=== PATIENT | female | born 1985 | race Caucasian/White ===

== ENCOUNTER 2017-01-21 17:39 | Emergency (ER) | payer MEDICAID ==
[2017-01-21] MEDS ORDERED: Ondansetron 4 MG/2 ML SDV IVPUSH ONE (18:23)
--- NOTE | 2017-01-21 18:26 | EDM.PDOC ---
ED HPI GENERAL MEDICAL PROBLEM - General Chief Complaint: Gastrointestinal Problem Stated Complaint: NAUSEA, VOMITING Time Seen by Provider: 01/21/17 18:26 Source of Information: Reports: Patient History Limitations: Reports: No Limitations - History of Present Illness INITIAL COMMENTS - FREE TEXT/NARRATIVE: pt arrived with a history of vomiting most of the week end. She did do some vomiting on but he was better on Sunday and then started having problems on the wekend. She does have epigastric pain. She has not had rel severe pain like a gb attack. Onset: Gradual, Other ( sevral days. ) Location: Reports: Abdomen Associated Symptoms: Reports: Nausea/Vomiting, Other (t is 18 weeks . ) Epigastric Pain Score (Numeric/FACES): 9 - Related Data Allergies Allergy/AdvReac Type Severity Reaction Status Date / Time cefuroxime [From Ceftin] Allergy Seizure Verified 01/21/17 17:57 Past Medical History - Past Health History Medical/Surgical History: Denies Medical/Surgical History HEENT History: Reports: Impaired Vision Social & Family History - Tobacco Use Smoking Status *Q: Never Smoker - Caffeine Use Caffeine Use: Reports: Soda - Recreational Drug Use Recreational Drug Use: No ED ROS GENERAL - Review of Systems Review Of Systems: See Below Constitutional: Reports: Chills, Malaise, Decreased Appetite Respiratory: Reports: Cough, Other ( This just started this yefri. ) Cardiovascular: Reports: No Symptoms Endocrine: Reports: No Symptoms GI/Abdominal: Reports: Abdominal Pain, Other ( epigastric tenderness. ) : Reports: No Symptoms Musculoskeletal: Reports: No Symptoms Skin: Reports: No Symptoms ED EXAM, GI/ABD - Physical Exam Exam: See Below Text/Narrative:: pt arrived with upper abdomanal pain. She has been vomiting alot over the week end. She has developed diarrhea. She has a cough today which is new. Exam Limited By: No Limitations General Appearance: Alert, Mild Distress Eyes: Bilateral: Normal Appearance, EOMI Ears: Normal TMs Nose: Normal Inspection Throat/Mouth: Normal Inspection Head: Atraumatic Neck: Normal Inspection Respiratory/Chest: No Respiratory Distress Cardiovascular: Regular Rate, Rhythm GI/Abdominal Exam: Other ( tender in the epgastric area. ) (Female) Exam: Deferred Rectal (Female) Exam: Deferred Back Exam: Normal Inspection Extremities: Normal Inspection Neurological: Alert, Oriented, Normal Cognition Psychiatric: Normal Affect Course - Vital Signs Last Recorded V/S: Last Vital Signs Temp 37.2 C 01/21/17 20:36 Pulse 95 01/21/17 20:36 Resp 16 01/21/17 20:36 BP 122/67 01/21/17 20:36 Pulse Ox 90 L 01/21/17 20:36 - Orders/Labs/Meds Orders: Active Orders 24 hr Category Date Time Status Abdomen Ltd [US] Stat Exams 01/21/17 19:57 Taken CULTURE URINE [RM] Stat Lab 01/21/17 19:07 Received Sodium Chloride 0.9% [Normal Saline] 1,000 ml Med 01/21/17 18:30 Active IV ASDIRECTED Sodium Chloride 0.9% [Normal Saline] 1,000 ml Med 01/21/17 19:30 Active IV ASDIRECTED Medication Orders Sodium Chloride (Normal Saline) 1,000 mls @ 999 mls/hr IV ASDIRECTED GREG Last Admin: 01/21/17 18:43 Dose: 999 mls/hr Sodium Chloride (Normal Saline) 1,000 mls @ 999 mls/hr IV ASDIRECTED GREG Last Admin: 01/21/17 19:49 Dose: 999 mls/hr Labs: Laboratory Tests 01/21/17 01/21/17 01/21/17 Range/Units 18:35 18:35 18:53 WBC 13.8 H (4.5-11.0) K/uL RBC 3.91 (3.30-5.50) M/uL Hgb 11.9 L (12.0-15.0) g/dL Hct 35.5 L (36.0-48.0) % MCV 91 (80-98) fL MCH 30 (27-31) pg MCHC 34 (32-36) % Plt Count 213 (150-400) K/uL Neut % (Auto) 78 H (36-66) % Lymph % (Auto) 15 L (24-44) % Floyd % (Auto) 7 H (2-6) % Eos % (Auto) 1 L (2-4) % Baso % (Auto) 0 (0-1) % Sodium 139 L (140-148) mmol/L Potassium 3.4 L (3.6-5.2) mmol/L Chloride 103 (100-108) mmol/L Carbon Dioxide 28 (21-32) mmol/L Anion Gap 11.4 (5.0-14.0) mmol/L BUN 6 L (7-18) mg/dL Creatinine 0.7 (0.6-1.0) mg/dL Est Cr Clr Drug Dosing 102.40 mL/min Estimated GFR (MDRD) > 60 (>60) Glucose 99 (74-106) mg/dL Calcium 8.7 (8.5-10.1) mg/dL Total Bilirubin 0.4 (0.2-1.0) mg/dL AST 24 (15-37) U/L ALT 41 (12-78) U/L Alkaline Phosphatase 72 (46-116) U/L Total Protein 6.6 (6.4-8.2) g/dL Albumin 3.1 L (3.4-5.0) g/dL Globulin 3.5 (2.3-3.5) g/dL Albumin/Globulin Ratio 0.9 L (1.2-2.2) Lipase 121 (73-393) U/L Urine Color Yellow Urine Appearance Cloudy Urine pH 6.0 (4.5-8.0) Ur Specific [place] 1.020 (1.008-1.030) Urine Protein Negative (NEGATIVE) mg/dL Urine Glucose (UA) Normal (NEGATIVE) mg/dL Urine Ketones Negative (NEGATIVE) mg/dL Urine Occult Blood Negative (NEGATIVE) Urine Nitrite Negative (NEGATIVE) Urine Bilirubin Negative (NEGATIVE) Urine Urobilinogen Normal (NORMAL) mg/dL Ur Leukocyte Esterase Negative (NEGATIVE) Urine RBC 0-5 (0-5) Urine WBC 0-5 (0-5) Ur Epithelial Cells Many Amorphous Sediment Many Urine Bacteria Moderate Urine Mucus Few Urine Other Meds: Medications Generic Name Dose Route Start Last Admin Trade Name Freq PRN Reason Stop Dose Admin Sodium Chloride 1,000 mls @ 999 mls/hr 01/21/17 18:30 01/21/17 18:43 Normal Saline IV 999 mls/hr ASDIRECTED GREG Administration Sodium Chloride 1,000 mls @ 999 mls/hr 01/21/17 19:30 01/21/17 19:49 Normal Saline IV 999 mls/hr ASDIRECTED GREG Administration Discontinued Medications Generic Name Dose Route Start Last Admin Trade Name Freq PRN Reason Stop Dose Admin Ondansetron HCl 4 mg 01/21/17 18:23 01/21/17 18:43 Zofran IVPUSH 01/21/17 18:24 4 mg ONETIME ONE Administration Sucralfate 1 gm 01/21/17 19:02 01/21/17 19:19 Carafate PO 01/21/17 19:03 1 gm ONETIME ONE Administration - Re-Assessments/Exams Free Text/Narrative Re-Assessment/Exam: 01/21/17 19:31 pt hs epigastric tenderness. She does not hve sig fever. She last vomited at 5 am. She has been voiding ok. She has good heart tones at 169. Her lab work looks good. her wbc is 13,800. Her lipase is normal and hr liver enzymes are normal. Her urine is concentrted and has bacteria but very little wbcs. 01/21/17 22:04 pt had an us of her upper abdoman which did reveal stones present. She did have some thickening of her GB wall. She also had a nodule in the head of the pancreas wjhich will need further evaluation. Departure - Departure Time of Disposition: 22:05 Disposition: Home, Self-Care 01 Condition: Fair Clinical Impression: Viral illness, Cholecystitis with cholelithiasis, 18 weeks gestation of - Discharge Information Referrals: Greta Babcock CNM [Primary Care Provider] - Forms: ED Department Discharge Care Plan Goals: appt with Macy perez or sun. Gb diet, carafate 500mg tid . zpforan 4ng q6h prn for nayusea. - My Orders Last 24 Hours: My Active Orders 01/21/17 18:30 Sodium Chloride 0.9% [Normal Saline] 1,000 ml IV ASDIRECTED 01/21/17 19:07 CULTURE URINE [RM] Stat 01/21/17 19:30 Sodium Chloride 0.9% [Normal Saline] 1,000 ml IV ASDIRECTED 01/21/17 19:57 Abdomen Ltd [US] Stat - Assessment/Plan Last 24 Hours: My Active Orders 01/21/17 18:30 Sodium Chloride 0.9% [Normal Saline] 1,000 ml IV ASDIRECTED 01/21/17 19:07 CULTURE URINE [RM] Stat 01/21/17 19:30 Sodium Chloride 0.9% [Normal Saline] 1,000 ml IV ASDIRECTED 01/21/17 19:57 Abdomen Ltd [US] Stat
[2017-01-21] MEDS ORDERED: Sodium Chloride 0.9% 1,000 ML IV SCH ×2 (18:30→19:30)
[2017-01-21] MEDS ORDERED: Sucralfate 1 GM Tab PO ONE (19:02)
[2017-01-21 20:36] VITALS: BP 122/67
== END 2017-01-21 22:27 | disposition home or self-care (01) ==
LOC: JP.ED 17:39
DX: O99.612 Diseases of the digestive system complicating pregnancy, second trimester (principal); K80.10 Calculus of gallbladder with chronic cholecystitis without obstruction; O98.512 Other viral diseases complicating pregnancy, second trimester; B34.9 Viral infection, unspecified; Z88.1 Allergy status to other antibiotic agents; Z3A.18 18 weeks gestation of pregnancy
CPT/HCPCS: 36415; 76705; 80053; 81001; 83690; 85025; 87086; 96361; 96374; 99284; A9270; J2405; J7040

== ENCOUNTER 2017-05-20 10:50 | Emergency (ER) | payer MEDICAID ==
[2017-05-20 11:06] VITALS: BP 133/68
--- NOTE | 2017-05-20 11:31 | EDM.PDOC ---
ED HPI GENERAL MEDICAL PROBLEM - General Chief Complaint: Respiratory Problem Stated Complaint: BRONCHITIS?? Time Seen by Provider: 05/20/17 11:15 Source of Information: Reports: Patient, RN History Limitations: Reports: No Limitations - History of Present Illness INITIAL COMMENTS - FREE TEXT/NARRATIVE: 31 yo female presents with a cough and runny nose. No significant fever. Cough sometimes productive. Is not a smoker and is not asthmatic. Not SOB. Onset: Gradual Onset Date: 05/18/17 Duration: Day(s):, Getting Worse Location: Reports: Face (nose), Chest Quality: Reports: Other (no pain) Severity: Moderate Improves with: Reports: None Worsens with: Reports: None Context: Reports: Sick Contact Associated Symptoms: Reports: Cough, Other (rhinorrhea). 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 Denies: Shortness of Breath, Wheezing, Pleuritic Chest Pain, Hemoptysis Cardiovascular: Reports: No Symptoms Endocrine: Reports: No Symptoms GI/Abdominal: Reports: No Symptoms : Reports: No Symptoms, Other () Musculoskeletal: Reports: No Symptoms Skin: Reports: No Symptoms Neurological: Reports: No Symptoms ED EXAM, GENERAL - Physical Exam Exam: See Below Exam Limited By: No Limitations General Appearance: Alert, WD/WN, No Apparent Distress Eye Exam: Bilateral Eye: Normal Inspection Ears: Normal External Exam, Normal Canal, Hearing Grossly Normal, Normal TMs Ear Exam: Bilateral Ear: Auricle Normal, Canal Normal, TM normal Nose: No Blood, Nasal Drainage, Other (cloudy rhinorrhea, not dark). No: Nasal Tenderness, Nasal Flaring Throat/Mouth: Normal Inspection, Normal Lips, Normal Oropharynx, Normal Voice, No Airway Compromise Head: Atraumatic, Normocephalic Neck: Normal Inspection, Supple, Non-Tender Respiratory/Chest: No Respiratory Distress, Lungs Clear, Normal Breath Sounds, No Accessory Muscle Use Cardiovascular: Regular Rate, Rhythm, No Edema Extremities: Normal Inspection Neurological: Alert, Oriented, CN II-XII Intact, Normal Cognition, No Motor/ Sensory Deficits Psychiatric: Normal Affect, Normal Mood Skin Exam: Warm, Dry, Intact, Normal Color, No Rash Lymphatic: No Adenopathy Course - Vital Signs Last Recorded V/S: Last Vital Signs Temp 35.8 C 05/20/17 11:00 Pulse 96 05/20/17 11:00 Resp 16 05/20/17 11:00 BP 133/68 05/20/17 11:00 Pulse Ox 98 05/20/17 11:00 Departure - Departure Time of Disposition: 11:30 Disposition: Home, Self-Care 01 Condition: Good Clinical Impression: Viral URI with cough, 18 weeks gestation of - Discharge Information Referrals: Greta Babcock CNM [Primary Care Provider] - Forms: ED Department Discharge, ED Return to Work/School Form Additional Instructions: Cool mist humidifier. Drink ample fluids. Acetaminophen as needed for pain/ fever control. Limit use of cold meds. Recheck with your provider if needed.
== END 2017-05-20 11:36 | disposition home or self-care (01) ==
LOC: JP.ED 10:50
DX: O99.512 Diseases of the respiratory system complicating pregnancy, second trimester (principal); J06.9 Acute upper respiratory infection, unspecified; Z3A.18 18 weeks gestation of pregnancy; Z88.1 Allergy status to other antibiotic agents
CPT/HCPCS: 99283

== ENCOUNTER 2017-06-07 20:20 | Inpatient (IN) | payer MEDICAID ==
[2017-06-07] MEDS ORDERED: Penicillin G Potassium 5 MILLUNITS in Sodium Chloride 0.9% 50 ML IV ONE (22:00)
[2017-06-07] MEDS ORDERED: Ondansetron 4 MG Tab.DIS PO PRN (22:20)
[2017-06-07] MEDS ORDERED: fentaNYL 100 MCG/2 ML SDV IVPUSH PRN (22:20)
[2017-06-07] MEDS ORDERED: Acetaminophen 325 MG Tab PO PRN (22:20)
[2017-06-07] MEDS ORDERED: Sodium Chloride 0.9% 10 ML Syringe FLUSH PRN (22:20)
[2017-06-07] MEDS ORDERED: Zolpidem 5 MG Tab PO ONE (22:26)
--- NOTE | 2017-06-07 22:32 | PCM.LDHP ---
L&D History of Present Illness - General Date of Service: 06/07/17 Admit Problem/Dx: Patient Status Order with Admit Dx/Problem 06/07/17 22:21 Patient Status [ADT] Routine Admission Diagnosis/Problem Admission Diagnosis/Problem and not yet delivered Source of Information: Patient History Limitations: Reports: No Limitations - History of Present Illness Introduction:: This 31 year old who is 39 1/7 weeks gestation had spontaneous rupture of membranes tonight at home about 2030. Presented to hospital leaking clear fluid. Fern test positive. I saw her in clinic this afternoon. CE FT/60%/-2 Has a few contractions about 7-8 minutes apart, super mild. GBS positive Timing/Duration: Reports: minutes: (8) Location, : Reports: Abdomen Severity: Mild Improves with: Reports: None Worsens with: Reports: None Associated Symptoms: Reports: vaginal fluid - Related Data Allergies/Adverse Reactions: Allergies Allergy/AdvReac Type Severity Reaction Status Date / Time cefuroxime [From Ceftin] Allergy Seizure Verified 05/20/17 11:06 Home Medications: Home Meds Cetirizine [ZyrTEC] 10 mg PO DAILY PRN 06/07/17 [History] Omeprazole Magnesium [Prilosec] 20 mg PO DAILY 06/07/17 [History] PNV95/Ferrous Fumarate/FA [ Tablet] 1 tab PO DAILY 06/07/17 [History] Sucralfate [Carafate] 1 gm PO DAILY 06/07/17 [History] Past Medical History - Past Health History Medical/Surgical History: Denies Medical/Surgical History HEENT History: Reports: Impaired Vision Cardiovascular History: Reports: None Respiratory History: Reports: None Gastrointestinal History: Reports: GERD, Other (See Below) Other Gastrointestinal History: gall stones Genitourinary History: Reports: None 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 Para: 0 LMP (Approximate): (KATHY 06/13/17) Musculoskeletal History: Reports: None Neurological History: Reports: None Psychiatric History: Reports: None Endocrine/Metabolic History: Reports: None Hematologic History: Reports: None Oncologic (Cancer) History: Reports: None Dermatologic History: Reports: None - Infectious Disease History Infectious Disease History: Reports: None - Past Surgical History HEENT Surgical History: Reports: None Cardiovascular Surgical History: Reports: None Respiratory Surgical History: Reports: None GI Surgical History: Reports: None Female Surgical History: Reports: None Endocrine Surgical History: Reports: None Neurological Surgical History: Reports: None Musculoskeletal Surgical History: Reports: None Oncologic Surgical History: Reports: None Dermatological Surgical History: Reports: None Social & Family History - Tobacco Use Smoking Status *Q: Never Smoker - Caffeine Use Caffeine Use: Reports: Tea - Recreational Drug Use Recreational Drug Use: No H&P Review of Systems - Review of Systems: Review Of Systems: See Below General: Reports: No Symptoms HEENT: Reports: No Symptoms Pulmonary: Reports: No Symptoms Cardiovascular: Reports: No Symptoms Gastrointestinal: Reports: No Symptoms Genitourinary: Reports: No Symptoms Musculoskeletal: Reports: No Symptoms Skin: Reports: No Symptoms Psychiatric: Reports: No Symptoms Neurological: Reports: No Symptoms Hematologic/Lymphatic: Reports: No Symptoms Immunologic: Reports: No Symptoms L&D Exam - Exam Exam: See Below - Vital Signs Vital Signs: Last Vital Signs Temp 98.5 F 06/07/17 20:34 Pulse 105 H 06/07/17 20:34 Resp 20 06/07/17 20:34 BP 141/87 H 06/07/17 20:34 Pulse Ox - OB Specific Fundal Height In cm: 39 Contraction Duration (sec): 60-130 Contraction Frequency (min): x2 Contraction Intensity: Mild Movement: Active Heart Tones: Present Heart Tones per Min: 135 Heart Rate (FHR) Variability: Moderate (6-25 bmp) Presentation: Vertex Estimated Weight: 8 pounds - Dahl Score Dahl Score Cervix Position: Midposition Dahl Score Consistency: Soft Dalh Score Effacement: 51-70% Dahl Score Dilation: Closed Dahl Score 's Station: -2 Dahl Score Total: 6 - Exam General: Alert, Oriented HEENT: PERRLA, Conjunctiva Clear, EACs Clear, EOMI, Hearing Intact, Mucosa Moist & [place], Nares Patent, Normal Nasal Septum, Posterior Pharynx Clear, TMs Clear Neck: Supple, Trachea Midline Lungs: Clear to Auscultation, Normal Respiratory Effort Cardiovascular: Regular Rate, Regular Rhythm GI/Abdominal Exam: Normal Bowel Sounds, Soft, Non-Tender, No Organomegaly, No Distention, No Abnormal Bruit, No Mass, Pelvis Stable Rectal Exam: Normal Exam, Normal Rectal Tone Genitourinary: Normal external exam, Normal bimanual exam, Normal speculum exam , Enlarged uterus, Vaginal discharge Back Exam: Normal Inspection, Full Range of Motion Extremities: Normal Inspection, Normal Range of Motion, Non-Tender, No Pedal Edema, Normal Capillary Refill Skin: Warm, Dry, Intact Neurological: Cranial Nerves Intact, Reflexes Equal Bilateral Psychiatric: Alert, Normal Affect, Normal Mood - Patient Data Lab Results Last 24 hrs: Laboratory Results - last 24 hr 06/07/17 06/07/17 Range/Units 20:26 20:27 Urine Color Red Urine Appearance Cloudy Urine pH 6.0 (4.5-8.0) Ur Specific [place] 1.020 (1.008-1.030) Urine Protein 100 H (NEGATIVE) mg/dL Urine Glucose (UA) Normal (NEGATIVE) mg/dL Urine Ketones Negative (NEGATIVE) mg/dL Urine Occult Blood Large (NEGATIVE) Urine Nitrite Negative (NEGATIVE) Urine Bilirubin Negative (NEGATIVE) Urine Urobilinogen Normal (NORMAL) mg/dL Ur Leukocyte Esterase Large (NEGATIVE) Urine RBC Semi-packed H (0-5) Urine WBC Semi-packed H (0-5) Ur Epithelial Cells Many Amorphous Sediment Not seen Urine Bacteria Many Urine Mucus Few Membrane Rupture Negative (NEGATIVE) - Problem List (1) PROM (premature rupture of membranes) SNOMED Code(s): 98477037 ICD Code: O42.90 - LILY ROM, 7TH0 BETW RUPT & ONST LABR, UNSP WEEKS OF GEST Status: Acute Current Visit: Yes (2) SNOMED Code(s): 01750912 ICD Code: Z34.90 - ENCNTR FOR SUPRVSN OF NORMAL , UNSP, UNSP TRIMESTER Status: Acute Current Visit: Yes Qualifiers: Weeks of gestation: 39 weeks Qualified Code(s): Z3A.39 - 39 weeks gestation of Problem List Initiated/Reviewed/Updated: Yes Orders Last 24hrs: Active Orders 24 hr Category Date Time Status Patient Status [ADT] Routine ADT 06/07/17 22:21 Ordered Antiembolic Devices [RC] .Routine Care 06/07/17 22:24 Ordered Bedrest Bathroom Privileges [RC] ASDIRECTED Care 06/07/17 22:20 Ordered Communication Order [RC] ASDIRECTED Care 06/07/17 22:21 Ordered Heart Tones [RC] PER UNIT ROUTINE Care 06/07/17 22:21 Ordered May Shower [RC] ASDIRECTED Care 06/07/17 22:20 Ordered Notify Provider Vital Signs [RC] PRN Care 06/07/17 22:20 Ordered Notify Provider [RC] PRN Care 06/07/17 22:21 Ordered OB Check [OM.PC] Click to Edit Care 06/07/17 20:26 Ordered Ready for Discharge [RC] PER UNIT ROUTINE Care 06/07/17 21:29 Inactive Up ad Felisa [RC] ASDIRECTED Care 06/07/17 22:20 Ordered VTE/DVT Education [RC] Click to Edit Care 06/07/17 22:24 Ordered Vital Signs [RC] PER UNIT ROUTINE Care 06/07/17 22:21 Ordered Regular Diet [DIET] Diet 06/08/17 Breakfast Ordered CBC WITH AUTO DIFF [HEME] Routine Lab 06/07/17 22:16 Ordered DRUG SCREEN, URINE [URCHEM] Routine Lab 06/07/17 22:17 Ordered Acetaminophen [Tylenol] Med 06/07/17 22:20 Ordered 650 mg PO Q4H PRN Ondansetron [Zofran ODT] Med 06/07/17 22:20 Ordered 4 mg PO Q4H PRN Oxytocin/Normal Saline [Pitocin in NS 20 Units/1,000 ML Med 06/07/17 22:30 Ordered ] 1,000 ml IV TITRATE Penicillin G Potassium [Pfizerpen] 2.5 millunits Med 06/08/17 02:00 Active Sodium Chloride 0.9% [Normal Saline] 50 ml IV Q4H Penicillin G Potassium [Pfizerpen] 5 millunits Med 06/07/17 22:00 Active Sodium Chloride 0.9% [Normal Saline] 50 ml IV ONETIME Sodium Chloride 0.9% [Saline Flush] Med 06/07/17 22:20 Ordered 10 ml FLUSH ASDIRECTED PRN Zolpidem [Ambien] Med 06/07/17 22:26 Once 10 mg PO ONETIME ONE fentaNYL [Sublimaze] Med 06/07/17 22:20 Ordered 100 mcg IVPUSH Q1H PRN DVT/VTE Prophylaxis Reflex [OM.PC] Routine Oth 06/07/17 22:20 Ordered Saline Lock Insert [OM.PC] Routine Oth 06/07/17 22:21 Ordered Resuscitation Status Routine Resus Stat 06/07/17 22:20 Ordered Medication Orders Acetaminophen (Tylenol) 650 mg PO Q4H PRN PRN Reason: Pain (Mild 1-3) and fever Fentanyl (Sublimaze) 100 mcg IVPUSH Q1H PRN PRN Reason: Pain (moderate 4-6) Penicillin G Potassium 5 (millunits/ Sodium Chloride) 50 mls @ 100 mls/hr IV ONETIME ONE Stop: 06/07/17 22:29 Penicillin G Potassium 2.5 (millunits/ Sodium Chloride) 50 mls @ 100 mls/hr IV Q4H GREG Oxytocin/Sodium Chloride (Pitocin In Ns 20 Units/1,000 Ml) 1,000 mls @ 6 mls/ hr IV TITRATE GREG; 2 MUNITS/MIN PRN Reason: Protocol Ondansetron HCl (Zofran Odt) 4 mg PO Q4H PRN PRN Reason: Nausea/Vomiting Sodium Chloride (Saline Flush) 10 ml FLUSH ASDIRECTED PRN PRN Reason: Keep Vein Open Zolpidem Tartrate (Ambien) 10 mg PO ONETIME ONE Stop: 06/07/17 22:27 Assessment/Plan Comment:: 06/07/17 31 year old 39 1/7 weeks with PROM, positive fern test. GBS positive, protocol started. ABO A pos HIV neg Rubella immune Plan: Rest tonight ambien 10 mg po now. Up at 0500 shower breakfast and start pitocin drip NO vaginal checks unless absolutely necessary Epidural for pain management if she requests. anticipate vaginal delivery tomorrow
[2017-06-08] MEDS: Penicillin G Potassium 2.5 MILLUNITS in Sodium Chloride 0.9% 50 ML IV SCH ×6 (02:33→22:29)
--- NOTE | 2017-06-08 07:20 | PCM.PNLD ---
Labor Progress Note - VS & Meds Vital Signs: Last Vital Signs Temp 97.2 F 06/08/17 06:00 Pulse 93 06/08/17 06:32 Resp 16 06/08/17 06:32 BP 122/76 06/08/17 06:32 Pulse Ox 97 06/08/17 06:32 Active Medications: Current Medications Acetaminophen (Tylenol) 650 mg PO Q4H PRN PRN Reason: Pain (Mild 1-3) and fever Fentanyl (Sublimaze) 100 mcg IVPUSH Q1H PRN PRN Reason: Pain (moderate 4-6) Penicillin G Potassium 2.5 (millunits/ Sodium Chloride) 50 mls @ 100 mls/hr IV Q4H GREG Last Admin: 06/08/17 06:00 Dose: 100 mls/hr Oxytocin/Sodium Chloride (Pitocin In Ns 20 Units/1,000 Ml) 20 unit in 1,000 mls @ 6 mls/hr IV TITRATE GREG; 2 MUNITS/MIN PRN Reason: Protocol Last Titration: 06/08/17 07:01 Dose: 8 munits/min, 24 mls/hr Ondansetron HCl (Zofran Odt) 4 mg PO Q4H PRN PRN Reason: Nausea/Vomiting Sodium Chloride (Saline Flush) 10 ml FLUSH ASDIRECTED PRN PRN Reason: Keep Vein Open Last Admin: 06/08/17 02:35 Dose: 10 ml Discontinued Medications Penicillin G Potassium 5 (millunits/ Sodium Chloride) 50 mls @ 100 mls/hr IV ONETIME ONE Stop: 06/07/17 22:29 Last Admin: 06/07/17 22:45 Dose: 100 mls/hr Zolpidem Tartrate (Ambien) 10 mg PO ONETIME ONE Stop: 06/07/17 22:27 Last Admin: 06/07/17 22:49 Dose: 10 mg - Uterine Contractions Uterine Monitoring Mode: External Eek Contraction Frequency (min): 3-4 Contraction Duration (sec): 30-80 Contraction Intensity: Mild Uterine Resting Tone: Soft - Monitoring Monitor Mode: Doppler/Auscultation Heart Rate (FHR) Baseline: 1,135 Heart Rate (FHR) Variability: Moderate (6-25 bmp) Accelerations: Present, 15x15 Decelerations: None Strip Review: Category I - Vaginal Exam Dilation (cm): 1 Effacement (Percent): 75 Station: 0 Cervical Position: Posterior Sterile Vaginal Exam Performed By: Greta Babcock Vaginal Exam Comment: change since yesterday. - Labor Progress (Free Text) Labor Progress: 06/08/17 Pitocin infusing, CTX every 2-3 minutes, not painful cat one strip HGB 12.3 PLT 243 Plan epidural later monitor for active labor Limit vaginal checks Plan for vaginal delivery later today
--- NOTE | 2017-06-08 12:17 | PCM.PNLD ---
Labor Progress Note - VS & Meds Vital Signs: Last Vital Signs Temp 98 F 06/08/17 11:30 Pulse 78 06/08/17 11:30 Resp 24 H 06/08/17 11:30 BP 134/84 06/08/17 11:30 Pulse Ox 95 06/08/17 11:30 Active Medications: Current Medications Acetaminophen (Tylenol) 650 mg PO Q4H PRN PRN Reason: Pain (Mild 1-3) and fever Fentanyl (Sublimaze) 100 mcg IVPUSH Q1H PRN PRN Reason: Pain (moderate 4-6) Penicillin G Potassium 2.5 (millunits/ Sodium Chloride) 50 mls @ 100 mls/hr IV Q4H GREG Last Admin: 06/08/17 10:19 Dose: 100 mls/hr Oxytocin/Sodium Chloride (Pitocin In Ns 20 Units/1,000 Ml) 20 unit in 1,000 mls @ 6 mls/hr IV TITRATE GREG; 2 MUNITS/MIN PRN Reason: Protocol Last Titration: 06/08/17 08:45 Dose: 12 munits/min, 36 mls/hr Ondansetron HCl (Zofran Odt) 4 mg PO Q4H PRN PRN Reason: Nausea/Vomiting Sodium Chloride (Saline Flush) 10 ml FLUSH ASDIRECTED PRN PRN Reason: Keep Vein Open Last Admin: 06/08/17 02:35 Dose: 10 ml Discontinued Medications Penicillin G Potassium 5 (millunits/ Sodium Chloride) 50 mls @ 100 mls/hr IV ONETIME ONE Stop: 06/07/17 22:29 Last Admin: 06/07/17 22:45 Dose: 100 mls/hr Zolpidem Tartrate (Ambien) 10 mg PO ONETIME ONE Stop: 06/07/17 22:27 Last Admin: 06/07/17 22:49 Dose: 10 mg - Uterine Contractions Uterine Monitoring Mode: External [place] Contraction Frequency (min): 2-3 Contraction Duration (sec): 40-80 Contraction Intensity: Moderate Uterine Resting Tone: Soft - Monitoring Monitor Mode: Doppler/Auscultation Heart Rate (FHR) Baseline: 135 Heart Rate (FHR) Variability: Moderate (6-25 bmp) Accelerations: Present, 15x15 Decelerations: None Strip Review: Category I - Vaginal Exam Dilation (cm): 2 Effacement (Percent): 80 Station: 0 Cervical Position: Midposition Sterile Vaginal Exam Performed By: Greta Babcock Vaginal Exam Comment: change since this morning - Labor Progress (Free Text) Labor Progress: continues to leak clear fluid, no temp, slow progress
[2017-06-08] MEDS ORDERED: Lactated Ringers 1,000 ML IV ONE ×2 (15:35)
--- NOTE | 2017-06-08 15:37 | PCM.PNLD ---
Labor Progress Note - VS & Meds Vital Signs: Last Vital Signs Temp 98.4 F 06/08/17 15:12 Pulse 88 06/08/17 15:12 Resp 20 06/08/17 15:12 BP 152/91 H 06/08/17 15:14 Pulse Ox 97 06/08/17 15:12 Active Medications: Current Medications Acetaminophen (Tylenol) 650 mg PO Q4H PRN PRN Reason: Pain (Mild 1-3) and fever Fentanyl (Sublimaze) 100 mcg IVPUSH Q1H PRN PRN Reason: Pain (moderate 4-6) Penicillin G Potassium 2.5 (millunits/ Sodium Chloride) 50 mls @ 100 mls/hr IV Q4H GREG Last Admin: 06/08/17 14:46 Dose: 100 mls/hr Oxytocin/Sodium Chloride (Pitocin In Ns 20 Units/1,000 Ml) 20 unit in 1,000 mls @ 6 mls/hr IV TITRATE GREG; 2 MUNITS/MIN PRN Reason: Protocol Last Titration: 06/08/17 14:34 Dose: 18 munits/min, 54 mls/hr Ondansetron HCl (Zofran Odt) 4 mg PO Q4H PRN PRN Reason: Nausea/Vomiting Sodium Chloride (Saline Flush) 10 ml FLUSH ASDIRECTED PRN PRN Reason: Keep Vein Open Last Admin: 06/08/17 02:35 Dose: 10 ml Discontinued Medications Penicillin G Potassium 5 (millunits/ Sodium Chloride) 50 mls @ 100 mls/hr IV ONETIME ONE Stop: 06/07/17 22:29 Last Admin: 06/07/17 22:45 Dose: 100 mls/hr Zolpidem Tartrate (Ambien) 10 mg PO ONETIME ONE Stop: 06/07/17 22:27 Last Admin: 06/07/17 22:49 Dose: 10 mg - Uterine Contractions Uterine Monitoring Mode: External [place] Contraction Frequency (min): 1.5-3 Contraction Duration (sec): 40-70 Contraction Intensity: Moderate Uterine Resting Tone: Soft - Monitoring Monitor Mode: Doppler/Auscultation Heart Rate (FHR) Baseline: 135 Heart Rate (FHR) Variability: Moderate (6-25 bmp) Accelerations: Present, 15x15 Decelerations: None Strip Review: Category I - Vaginal Exam Dilation (cm): 3 Effacement (Percent): 100 Station: 0 Cervical Position: Anterior Sterile Vaginal Exam Performed By: Greta Babcock Vaginal Exam Comment: contractions every 2 minutes, has cervical change - Labor Progress (Free Text) Labor Progress: Very uncomfortable, time for epidural anticipate vaginal delivery later today
[2017-06-08] MEDS ORDERED: Ropivacaine 100 ML ONE (15:58)
[2017-06-08] MEDS ORDERED: ePHEDrine/Normal Saline 50 MG/5 ML Syringe ONE (16:11)
[2017-06-08] MEDS ORDERED: Ropivacaine 100 ML EPIDUR SCH (16:43)
[2017-06-08] MEDS ORDERED: Naloxone 0.4 MG/ML SDV IVPUSH PRN ×3 (16:43→22:19)
[2017-06-08] MEDS ORDERED: ePHEDrine/Normal Saline 50 MG/5 ML Syringe IVPUSH PRN (16:43)
--- NOTE | 2017-06-08 18:09 | PCM.PNLD ---
Labor Progress Note - VS & Meds Vital Signs: Last Vital Signs Temp 97.7 F 06/08/17 17:12 Pulse 85 06/08/17 17:12 Resp 16 06/08/17 17:12 BP 132/74 06/08/17 17:12 Pulse Ox 96 06/08/17 17:12 Active Medications: Current Medications Acetaminophen (Tylenol) 650 mg PO Q4H PRN PRN Reason: Pain (Mild 1-3) and fever Ephedrine Sulfate (Ephedrine In Ns) 5 - 10 mg IVPUSH ASDIRECTED PRN PRN Reason: SYSTOLIC BP LESS THAN 100 Fentanyl (Sublimaze) 100 mcg IVPUSH Q1H PRN PRN Reason: Pain (moderate 4-6) Penicillin G Potassium 2.5 (millunits/ Sodium Chloride) 50 mls @ 100 mls/hr IV Q4H GREG Last Admin: 06/08/17 14:46 Dose: 100 mls/hr Oxytocin/Sodium Chloride (Pitocin In Ns 20 Units/1,000 Ml) 20 unit in 1,000 mls @ 6 mls/hr IV TITRATE GREG; 2 MUNITS/MIN PRN Reason: Protocol Last Titration: 06/08/17 14:34 Dose: 18 munits/min, 54 mls/hr Ropivacaine (Naropin 0.2%) 100 mls @ 0 mls/hr EPIDUR ASDIRECTED GREG; Titrate PRN Reason: Protocol Naloxone HCl (Narcan) 0.1 mg IVPUSH Q5M PRN PRN Reason: IF RESP RATE LESS THAN 6 Ondansetron HCl (Zofran Odt) 4 mg PO Q4H PRN PRN Reason: Nausea/Vomiting Sodium Chloride (Saline Flush) 10 ml FLUSH ASDIRECTED PRN PRN Reason: Keep Vein Open Last Admin: 06/08/17 02:35 Dose: 10 ml Discontinued Medications Ephedrine Sulfate (Ephedrine In Ns) Confirm Administered Dose 50 mg .ROUTE .STK- MED ONE Stop: 06/08/17 16:12 Penicillin G Potassium 5 (millunits/ Sodium Chloride) 50 mls @ 100 mls/hr IV ONETIME ONE Stop: 06/07/17 22:29 Last Admin: 06/07/17 22:45 Dose: 100 mls/hr Lactated Ringer's (Ringers, Lactated) 1,000 mls @ 999 mls/hr IV .BOLUS ONE Stop: 06/08/17 16:35 Last Admin: 06/08/17 15:30 Dose: 999 mls/hr Ropivacaine (Naropin 0.2%) Confirm Administered Dose 100 mls @ as directed .ROUTE .STK-MED ONE Stop: 06/08/17 15:59 Zolpidem Tartrate (Ambien) 10 mg PO ONETIME ONE Stop: 06/07/17 22:27 Last Admin: 06/07/17 22:49 Dose: 10 mg - Uterine Contractions Uterine Monitoring Mode: External [place] Contraction Frequency (min): 1.5-3 Contraction Duration (sec): 50-80 Contraction Intensity: Moderate to Strong Uterine Resting Tone: Soft - Monitoring Monitor Mode: Doppler/Auscultation Heart Rate (FHR) Baseline: 135 Heart Rate (FHR) Variability: Moderate (6-25 bmp) Accelerations: Present, 15x15 Decelerations: None Strip Review: Category I - Vaginal Exam Dilation (cm): 3 Effacement (Percent): 90 Station: 0 Cervical Position: Anterior Sterile Vaginal Exam Performed By: Greta Babcock Vaginal Exam Comment: some head molding but no cervical change - Labor Progress (Free Text) Labor Progress: GBS positive and at about 2030 will be about 24 hours ruptured with Antibiotics and limited vaginal exams. epidural was placed at 1610 and is sleepy. My thoughts are that if by 2030 if she's not making progress with cervical dilation we need to discuss alternative delivery options, C section
--- NOTE | 2017-06-08 20:18 | PCM.PNLD ---
Labor Progress Note - VS & Meds Vital Signs: Last Vital Signs Temp 98.4 F 06/08/17 19:08 Pulse 89 06/08/17 19:08 Resp 16 06/08/17 19:08 BP 108/59 L 06/08/17 19:08 Pulse Ox 99 06/08/17 19:08 Active Medications: Current Medications Acetaminophen (Tylenol) 650 mg PO Q4H PRN PRN Reason: Pain (Mild 1-3) and fever Ephedrine Sulfate (Ephedrine In Ns) 5 - 10 mg IVPUSH ASDIRECTED PRN PRN Reason: SYSTOLIC BP LESS THAN 100 Fentanyl (Sublimaze) 100 mcg IVPUSH Q1H PRN PRN Reason: Pain (moderate 4-6) Penicillin G Potassium 2.5 (millunits/ Sodium Chloride) 50 mls @ 100 mls/hr IV Q4H GREG Last Admin: 06/08/17 18:43 Dose: 100 mls/hr Oxytocin/Sodium Chloride (Pitocin In Ns 20 Units/1,000 Ml) 20 unit in 1,000 mls @ 6 mls/hr IV TITRATE GREG; 2 MUNITS/MIN PRN Reason: Protocol Last Titration: 06/08/17 19:07 Dose: 22 munits/min, 66 mls/hr Ropivacaine (Naropin 0.2%) 100 mls @ 0 mls/hr EPIDUR ASDIRECTED GREG; Titrate PRN Reason: Protocol Last Admin: 06/08/17 10:51 Dose: 12 mls/hr, 12 mls/hr Naloxone HCl (Narcan) 0.1 mg IVPUSH Q5M PRN PRN Reason: IF RESP RATE LESS THAN 6 Ondansetron HCl (Zofran Odt) 4 mg PO Q4H PRN PRN Reason: Nausea/Vomiting Sodium Chloride (Saline Flush) 10 ml FLUSH ASDIRECTED PRN PRN Reason: Keep Vein Open Last Admin: 06/08/17 02:35 Dose: 10 ml Discontinued Medications Ephedrine Sulfate (Ephedrine In Ns) Confirm Administered Dose 50 mg .ROUTE .STK- MED ONE Stop: 06/08/17 16:12 Last Admin: 06/08/17 18:52 Dose: Not Given Penicillin G Potassium 5 (millunits/ Sodium Chloride) 50 mls @ 100 mls/hr IV ONETIME ONE Stop: 06/07/17 22:29 Last Admin: 06/07/17 22:45 Dose: 100 mls/hr Lactated Ringer's (Ringers, Lactated) 1,000 mls @ 999 mls/hr IV .BOLUS ONE Stop: 06/08/17 16:35 Last Admin: 06/08/17 15:30 Dose: 999 mls/hr Ropivacaine (Naropin 0.2%) Confirm Administered Dose 100 mls @ as directed .ROUTE .STK-MED ONE Stop: 06/08/17 15:59 Zolpidem Tartrate (Ambien) 10 mg PO ONETIME ONE Stop: 06/07/17 22:27 Last Admin: 06/07/17 22:49 Dose: 10 mg - Uterine Contractions Uterine Monitoring Mode: External [place] Contraction Frequency (min): 1.5-4 Contraction Duration (sec): 30-70 Contraction Intensity: Moderate Uterine Resting Tone: Soft - Monitoring Monitor Mode: Doppler/Auscultation Heart Rate (FHR) Baseline: 135 Heart Rate (FHR) Variability: Moderate (6-25 bmp) Accelerations: Present, 15x15 Decelerations: None Strip Review: Category I - Vaginal Exam Dilation (cm): 3 Effacement (Percent): 100 Station: 0 Cervical Position: Anterior Sterile Vaginal Exam Performed By: Greta Babcock Vaginal Exam Comment: no change - Labor Progress (Free Text) Labor Progress: 06/08/17 has had hours of adequate contractions with little cervical change. Due to the fact she has GBS and has now been ruptured for 24 hours, plan is to section for failure to progress, PROM, GBS positive. I spoke with the surgeon and the crew was called. This plan was discussed with the patient and she agrees, all questions were answered and consent was obtained.
[2017-06-08] MEDS ORDERED: Oxytocin 10 Units/1 ML SDV ONE ×2 (20:27→20:49)
[2017-06-08] MEDS ORDERED: ePHEDrine 50 MG/ML SDV ONE (20:27)
[2017-06-08] MEDS ORDERED: Ondansetron 4 MG/2 ML SDV ONE (20:46)
[2017-06-08] MEDS ORDERED: Dexamethasone 4 MG/ML SDV ONE (20:46)
[2017-06-08] MEDS ORDERED: Morphine PF 10 MG/10 ML SDV ONE (21:14)
[2017-06-08] MEDS ORDERED: diphenhydrAMINE 50 MG/ML SDV IVPUSH PRN ×2 (21:15→21:34)
[2017-06-08] MEDS ORDERED: Morphine PF 10 MG/10 ML SDV EPIDUR PRN (21:15)
[2017-06-08] MEDS ORDERED: Hydrocortisone 2.5% Crm 30 GM Tube TOP PRN (21:34)
[2017-06-08] MEDS ORDERED: Famotidine 20 MG Tab PO PRN (21:34)
[2017-06-08] MEDS ORDERED: Benzocaine 20% Top Spray 56 GM Bottle TOP PRN (21:34)
[2017-06-08] MEDS ORDERED: Lanolin 100% Cream 40 GM Tube TOP PRN (21:34)
[2017-06-08] MEDS ORDERED: Witch Hazel Medicated Pads 100/Jar TOP PRN (21:34)
[2017-06-08] MEDS ORDERED: Acetaminophen/HYDROcodone 325-5 MG Tab PO PRN (21:34)
[2017-06-08] MEDS ORDERED: Bisacodyl 10 MG Supp RECTAL PRN (21:34)
[2017-06-08] MEDS ORDERED: Aluminum Hydroxide/Magnesium Hydroxide/Simethicone Susp 30 ML Cup PO PRN (21:34)
[2017-06-08] MEDS ORDERED: diphenhydrAMINE 50 MG/ML SDV IV PRN (21:34)
[2017-06-08] MEDS: Simethicone 80 MG Tab.Chew PO SCH (22:00)
[2017-06-08] MEDS ORDERED: Meperidine PF 75 MG/ML Syringe IM PRN (22:26)
[2017-06-08] MEDS: Sodium Chloride 0.9% 1,000 ML IV SCH (23:30)
--- NOTE | 2017-06-09 01:07 | ANES ---
DATE OF SERVICE: 06/08/2017 TIME: 1555. I was called to the Labor and Delivery Unit to evaluate Ms. Mathur for a labor epidural. She is primed up and is approximately 3-4 cm and actively in labor. She is on a Pitocin drip. The risks and benefits of the procedure were explained to the patient. She wished to proceed with labor epidural. She was placed in a sitting position. Her back was prepped x3 with Betadine, 1% lidocaine skin local was used. The epidural was placed at L2-3 using a 17- gauge Tuohy needle in loss of resistance technique. The epidural had very good feel throughout and the epidural space was easily identified. There was negative CSF, negative blood, and negative paresthesias noted, therefore a catheter was threaded to 14 cm at the skin. There was negative CSF, negative blood, negative paresthesias noted at the catheter, therefore a 1.5% lidocaine test dose was given. This test dose had epinephrine and 3 mL was given. The test dose was negative. The catheter was then secured with Tegaderm and tape. The patient was placed in supine position. A 0.2% ropivacaine bolus of 12 mL was given. She had good results and her vital signs remained stable throughout the bolus. Therefore, 0.2% ropivacaine drip was started at 12 mL/h. Started procedure very nicely. The catheter was secured with Tegaderm and tape. Vital signs remained stable throughout the procedure and nurse was with me the entire procedure. There were no anesthesia complications noted. We will continue to monitor throughout her labor and delivery stay. Dain Middleton CRNA /[id number]
[2017-06-09] MEDS: Penicillin G Potassium 2.5 MILLUNITS in Sodium Chloride 0.9% 50 ML IV SCH ×3 (01:25→11:11)
--- NOTE | 2017-06-09 02:58 | CONS ---
DATE OF SERVICE: 06/08/2017 REFERRING PHYSICIAN: CONSULTING PHYSICIAN: Sharad Fernandez MD REASON FOR CONSULTATION: Evaluation of possible section. HISTORY OF PRESENT ILLNESS: A 31-year-old, G1, P0, 39-1/7 weeks approximately, who has been in the hospital in active labor for approximately 24 hours. Her membranes have ruptured, but she is in failure to progress. She has pain which is 1 to 2/10 and the patient is appearing fatigued. The consultation is related to if the patient would be a candidate for section. Of note, she has contractions every 7 to 8 minutes and is GBS positive. PAST MEDICAL HISTORY: Group B strep positive, history of reflux, and gallstones. PAST SURGICAL HISTORY: No previous abdominal surgery. FAMILY HISTORY: Noncontributory. REVIEW OF SYSTEMS: GENERAL: The patient has no significant changes from . HEENT: No symptoms. CARDIOVASCULAR SYSTEM: History of myocardial infarction. RESPIRATORY: No history of shortness of breath. GASTROINTESTINAL: No significant changes. GENITOURINARY: No significant changes. NEUROLOGICAL: Epidural has been placed. PSYCH: No gross depression. The remainder of review of systems is reviewed and is negative. PHYSICAL EXAMINATION: VITAL SIGNS: Temperature 98.4, blood pressure 108/59, respirations 16, and 99% on 2 L. GENERAL: The patient is appropriate for the condition, although she does look fatigued. HEENT: Pupils are equal. NECK: Supple. LUNGS: Clear. CARDIOVASCULAR: Regular rate. ABDOMEN: Appropriate for . No abdominal incision scars noted. EXTREMITIES: Full range of motion. NEUROLOGIC: Oriented x3. PSYCH: No gross depression. LABORATORY RESULTS: Show hemoglobin 12.3 and normal creatinine. ASSESSMENT: Evaluation for section. PLAN: I think the patient would be definitely amenable to section at this time. She essentially had a failure to advance with respect to and will be scheduled for section. We discussed risks, benefits, alternatives, limitations including, but not limited to infection, bleeding, injury to baby, bowel, bladder, and other risks not listed here. The patient understands these risks and wishes to proceed. Sharad Fernandez MD /[id number]
[2017-06-09] MEDS: Ibuprofen 800 MG Tab PO PRN ×3 (03:15→21:30)
[2017-06-09] MEDS: Simethicone 80 MG Tab.Chew PO SCH ×4 (06:52→21:31)
[2017-06-09] MEDS: Sodium Chloride 0.9% 1,000 ML IV SCH (08:11)
[2017-06-09] MEDS ORDERED: Sodium Chloride 0.9% 10 ML ONE (09:24)
[2017-06-09] MEDS ORDERED: Morphine PF 10 MG/10 ML SDV ONE (09:24)
--- NOTE | 2017-06-09 13:10 | PN ---
DATE OF SERVICE: 06/09/2017 SUBJECTIVE: The patient is doing very well. Pain is well controlled. No nausea, vomiting, shortness of breath, or chest pain. OBJECTIVE: VITAL SIGNS: Stable. CARDIOVASCULAR: Regular rhythm and rate. RESPIRATORY: Lungs clear to auscultation bilaterally. GI: Incision healing well. ASSESSMENT: Status post . PLAN: We will discontinue her epidural today, remove her Hanna, saline lock her, advance her diet, and re-evaluate in the a.m. As far as her hemoglobin is concerned, this is stable, and we will not recheck in the morning, as she has very minimal bleeding. Sharad Fernandez MD /[id number]
[2017-06-09] MEDS: Docusate Sodium 100 MG Cap PO PRN (16:35)
[2017-06-10] MEDS: Simethicone 80 MG Tab.Chew PO SCH ×3 (05:24→17:38)
[2017-06-10] MEDS: Ibuprofen 800 MG Tab PO PRN ×3 (05:26→22:57)
[2017-06-10] MEDS: Docusate Sodium 100 MG Cap PO PRN ×2 (07:32→20:19)
[2017-06-10] MEDS: Acetaminophen/Codeine 300-30 MG Tab PO PRN (19:20)
[2017-06-11] MEDS: Acetaminophen/Codeine 300-30 MG Tab PO PRN ×2 (03:37→09:52)
[2017-06-11 07:44] VITALS: BP 131/80
[2017-06-11] MEDS: Ibuprofen 800 MG Tab PO PRN (07:47)
[2017-06-11] MEDS ORDERED: Lactulose Soln 10 GM/15 ML 15 ML UD Cup PO SCH (09:00)
--- NOTE | 2017-06-11 09:03 | OR ---
DATE OF PROCEDURE: 06/08/2017 OPERATIVE PROCEDURE: section. RED MUD THICKENER OPERATOR: Vesna Babcock CNM. PREOPERATIVE DIAGNOSIS: Failure to advance. POSTOPERATIVE DIAGNOSIS: Failure to advance. ANESTHESIA: Epidural. RISKS: Risks, benefits, alternatives, limitations including, but not limited to infection, bleeding, injury to baby, mother, bladder, and other risks not listed here were explained to the patient, they wished to proceed. PROCEDURE IN DETAIL: The patient was placed in supine position. The section was performed in a classic Pfannenstiel type fashion. A transverse incision was made approximately 8 cm in size. This was carried down to electrocautery through and through the external oblique. Metzenbaum scissors was used to enter the abdomen sharply. No evidence of enterotomy or trauma was noted during entry. A muscle spreading technique was then performed. The bladder was identified and deflected inferiorly. A retracting blade was then placed between the bladder and uterus for the remainder of the delivery aspect of the procedure. Using a mosquito, the uterine wall was gently dissected until minimal fluid could be encountered. Using bandage scissors in combination with electrocautery, the uterus was opened allowing the baby to be delivered. The baby was delivered with mild difficulty. Once this delivered, the cord was clamped x3 and subsequently transected. Pitocin was given. The uterus was delivered from the abdomen. Placenta was delivered, inspected, noted to be complete. The uterus was swept for any additional retained placenta products, none was noted. The uterus was closed in 3 layers of 0 Vicryl running locked sutures. The bladder flap could also be interrupted or approximated again. The abdomen was inspected for clots which were removed and irrigation was commenced. The irrigation was removed. The peritoneum was then closed with running Vicryl suture The rectus muscles were reapproximated with 3-0 Vicryl suture The fascia was approximated with 0 Vicryl running suture. These layers were also irrigated, subcutaneous tissues were reapproximated. The skin was closed with 4-0 Vicryl in a running fashion. Dermabond was applied. The patient tolerated the procedure well procedure. Sharad Fernandez MD /[id number]
--- NOTE | 2017-06-11 17:09 | DISCH ---
DISCHARGE DIAGNOSIS: section. SUMMARY OF HOSPITAL COURSE: This is a pleasant 31-year-old female, who underwent an uneventful section due to failure to advance. The patient continued to advance over the next three days postoperatively. Prior to discharge, her pain was well controlled. She had no nausea, vomiting, shortness of breath, or chest pain, and tolerating diet. FOLLOWUP: Follow up with Surgery in 7 to 14 days. DISCHARGE MEDICATIONS: Please see MAR, but include Tylenol N0.3 for pain. ACTIVITY: No lifting greater than 30 pounds times 30 days. WOUND DISPOSITION: The patient may shower. No dressings needed. ADDITIONAL CONSULTATIONS DURING THIS HOSPITALIZATION: None.
--- NOTE | 2017-06-11 17:12 | PN ---
DATE OF SERVICE: 06/11/2017 SUBJECTIVE: The patient is doing quite well today. Pain is well controlled. No nausea, vomiting, shortness of breath, or chest pain. OBJECTIVE: VITAL SIGNS: Stable. CARDIOVASCULAR: Regular rhythm and rate. RESPIRATORY: Lungs are clear to consultation bilaterally. ABDOMEN: Bowel sounds are positive. Incision is healing well. ASSESSMENT: Status post section. PLAN: The patient will be discharged today. Please see discharge note for further details. Of note, discharge is pending. The patient will have a bowel movement prior to discharge as she has not had one for several days. Sharad Fernandez MD /[id number]
== END 2017-06-11 11:33 | disposition home or self-care (01) | DRG 766 ==
LOC: JP.OBCHECK 20:20 → JP.OB 21:46 → JP.MS 06-08 21:06 → OBSVTOIN 06-08 21:06
PROVIDERS: ADMIT Nurse Practitioner Family; ATTEND Nurse Practitioner Family
PROC: 10D00Z1 Extraction of Products of Conception, Low, Open Approach (ICD-10-PCS; principal; 2017-06-08)
PROC: 00HU33Z Insertion of Infusion Device into Spinal Canal, Percutaneous Approach (ICD-10-PCS; 2017-06-08)
DX: O62.0 Primary inadequate contractions (principal); O99.824 Streptococcus B carrier state complicating childbirth; O42.02 Full-term premature rupture of membranes, onset of labor within 24 hours of rupture; Z3A.39 39 weeks gestation of pregnancy; Z37.0 Single live birth; Z88.1 Allergy status to other antibiotic agents
CPT/HCPCS: 36415; 80048; 80305; 81001; 84112; 85025; 85027; 99211; A9270-GY; J1100; J1200; J2270; J2405; J2540; J2590; J2795; J7040; J7050; J7120

== ENCOUNTER 2019-06-09 16:16 | Emergency (ER) | payer SELFPAY ==
[2019-06-09 17:01] VITALS: BP 140/85; PULSE 80
[2019-06-09] MEDS ORDERED: Bacitracin Oint 1 GM U/D Packet TOP ONE (17:08)
--- NOTE | 2019-06-09 17:17 | EDM.PDOC ---
ED HPI GENERAL MEDICAL PROBLEM - General Chief Complaint: Skin Complaint Stated Complaint: POSSIBLE BROKEN NOSE Time Seen by Provider: 06/09/19 17:00 Source of Information: Reports: Patient History Limitations: Reports: No Limitations - History of Present Illness INITIAL COMMENTS - FREE TEXT/NARRATIVE: 33 yo female here after falling on her face. Had self-limited epistaxis. No LOC. Tetanus is UTD. No FERREIRA. Injury as she was leaving work. Onset: Today Onset Date: 06/09/19 Onset Time: 16:00 Duration: Minutes:, Constant Location: Reports: Face Quality: Reports: Ache Severity: Mild Improves with: Reports: None Worsens with: Reports: None Context: Reports: Trauma Associated Symptoms: Reports: No Other Symptoms Treatments DISTANCE LEARNING PROGRAM COORDINATOR: Reports: Other (see below) (none) Nose Pain Score (Numeric/FACES): 7 - Related Data Allergies Allergy/AdvReac Type Severity Reaction Status Date / Time cefuroxime [From Ceftin] Allergy Seizure Verified 06/09/19 17:00 hydrocodone [From Vicodin] AdvReac Nausea and Verified 06/09/19 17:00 Vomiting Home Meds: Home Meds Cetirizine [ZyrTEC] 10 mg PO DAILY PRN 06/07/17 [History] Acetaminophen [Tylenol] 650 mg PO Q6H PRN 02/27/18 [History] Albuterol Sulfate [Proair Hfa] 1 - 2 puff INH Q4H PRN 02/27/18 [History] Past Medical History - Past Health History Medical/Surgical History: Denies Medical/Surgical History HEENT History: Reports: Impaired Vision Cardiovascular History: Reports: None Respiratory History: Reports: Asthma Gastrointestinal History: Reports: GERD, Other (See Below) Other Gastrointestinal History: gall stones Genitourinary History: Reports: None METAL CHECKER History: Reports: Musculoskeletal History: Reports: None Neurological History: Reports: Migraines Psychiatric History: Reports: None, Depression Endocrine/Metabolic History: Reports: None Hematologic History: Reports: None Oncologic (Cancer) History: Reports: None Dermatologic History: Reports: None - Infectious Disease History Infectious Disease History: Reports: Chicken Pox - Past Surgical History HEENT Surgical History: Reports: Oral Surgery Cardiovascular Surgical History: Reports: None Respiratory Surgical History: Reports: None GI Surgical History: Reports: Appendectomy Female Surgical History: Reports: Section Endocrine Surgical History: Reports: None Neurological Surgical History: Reports: None Musculoskeletal Surgical History: Reports: None Oncologic Surgical History: Reports: None Dermatological Surgical History: Reports: None Social & Family History - Family History Family Medical History: Noncontributory - Tobacco Use Smoking Status *Q: Current Every Day Smoker Years of Tobacco use: 13 Packs/Tins Daily: 0.5 - Caffeine Use Caffeine Use: Reports: Soda - Recreational Drug Use Recreational Drug Use: No ED ROS GENERAL - Review of Systems Review Of Systems: See Below Constitutional: Reports: No Symptoms HEENT: Reports: Nose Pain Skin: Reports: Wound (abrasions of face) Neurological: Reports: No Symptoms ED EXAM, SKIN/RASH Exam: See Below Exam Limited By: No Limitations General Appearance: Alert, WD/WN, No Apparent Distress Eye Exam: Bilateral Eye: Normal Inspection, PERRL Ears: Normal External Exam, Normal Canal, Hearing Grossly Normal, Normal TMs Nose: Other (blood in nares, no active bleeding, no septal hematoma). No: No Blood Throat/Mouth: Normal Inspection, Normal Lips, Normal Oropharynx, Normal Voice, No Airway Compromise Head: Atraumatic, Normocephalic Neck: Normal Inspection Neurological: Alert, Oriented, CN II-XII Intact, Normal Cognition, No Motor/ Sensory Deficits Psychiatric: Normal Affect, Normal Mood Skin: Warm, Dry, Intact, Normal Color, No Rash, Wound/Incision (nasal and upper lip abrasions.) Location, Skin: Face Characteristics: Other (abrasion) Course - Vital Signs Last Recorded V/S: Last Vital Signs Temp 36.7 C 06/09/19 16:59 Pulse 80 06/09/19 16:59 Resp 18 06/09/19 16:59 BP 140/85 06/09/19 16:59 Pulse Ox 100 06/09/19 16:59 - Orders/Labs/Meds Orders: Active Orders 24 hr Category Date Time Status Nasal Bone Min 3V [CR] Stat Exams 06/09/19 17:08 Ordered Meds: Medications Discontinued Medications Generic Name Dose Route Start Last Admin Trade Name Freq PRN Reason Stop Dose Admin Bacitracin 1 dose 06/09/19 17:08 06/09/19 17:31 Bacitracin Oint 1 Gm TOP 06/09/19 17:09 1 dose ONETIME ONE Administration - Radiology Interpretation Free Text/Narrative:: Nasal [id number] nasal fx Departure - Departure Time of Disposition: 17:45 Disposition: Home, Self-Care 01 Condition: Good Clinical Impression: Nasal fracture Qualifiers: Encounter type: initial encounter Fracture type: closed Qualified Code(s): S02.2XXA - Fracture of nasal bones, initial encounter for closed fracture Nasal abrasion Qualifiers: Encounter type: initial encounter Qualified Code(s): S00.31XA - Abrasion of nose, initial encounter - Discharge Information *PRESCRIPTION DRUG MONITORING PROGRAM REVIEWED*: No *COPY OF PRESCRIPTION DRUG MONITORING REPORT IN PATIENT CLAUDIO: No Referrals: Greta Babcock CNM [Primary Care Provider] - Forms: ED Department Discharge Additional Instructions: Clean wound twice daily with 1/2 water and 1/2 peroxide. Dry. Apply Bacitracin ointment. Acetaminophen for pain relief. Recheck for signs of infection. Rest tonight with no lifting or exertion. Keep Bacitracin or Vaseline in your nostrils also twice daily. Sepsis Event Note - Focused Exam Vital Signs: Vital Signs Temp Pulse Resp BP Pulse Ox 06/09/19 16:59 36.7 C 80 18 140/85 100 Date Exam was Performed: 06/09/19 Time Exam was Performed: 17:34 - My Orders Last 24 Hours: My Active Orders 06/09/19 17:08 Nasal Bone Min 3V [CR] Stat - Assessment/Plan Last 24 Hours: My Active Orders 06/09/19 17:08 Nasal Bone Min 3V [CR] Stat
--- NOTE | 2019-06-10 08:40 | CR ---
Nasal Bone Min 3V CLINICAL HISTORY: Fall FINDINGS: There is a fracture of the nasal bones with slight depression. There is rightward deviation of the nasal septum. Anterior nasal spine is intact IMPRESSION: Fracture of the nasal bones
== END 2019-06-09 17:57 | disposition home or self-care (01) ==
LOC: JP.ED 16:16
DX: S02.2XXA Fracture of nasal bones, initial encounter for closed fracture (principal); F17.210 Nicotine dependence, cigarettes, uncomplicated; Z88.5 Allergy status to narcotic agent; Z79.899 Other long term (current) drug therapy; Z88.8 Allergy status to other drugs, medicaments and biological substances; W19.XXXA Unspecified fall, initial encounter
CPT/HCPCS: 70160; 70160-26; 99282; 99283-25